=== PATIENT | male | born 1985 | race Caucasian/White ===

== ENCOUNTER 2016-11-02 17:08 | Emergency (ER) | payer BC, MEDICAID ==
[~2016-11-02] VITALS: Ht 167.6 cm; Wt 61.2 kg
[2016-11-02 17:08] VITALS: BP 128/81
[2016-11-02] MEDS ORDERED: LORAZEPAM 1 MG TABLET PO ONE ×2 (17:30→18:00)
[2016-11-02] MEDS ORDERED: ASPIRIN 325 MG TABLET PO ONE (17:30)
[2016-11-02] MEDS ORDERED: IBUPROFEN 600 MG TABLET PO ONE ×2 (17:46→18:00)
[2016-11-02] MEDS ORDERED: LORAZEPAM 1 MG TABLET ONE (17:46)
== END 2016-11-02 17:59 | disposition home or self-care (01) ==
LOC: ER 17:11
DX: F41.9 Anxiety disorder, unspecified (principal); R07.89 Other chest pain; R00.2 Palpitations
CPT/HCPCS: 93005; 99284; A4606; Z7610

== ENCOUNTER 2017-07-10 16:33 | Emergency (ER) | payer SELFPAY ==
[~2017-07-10] VITALS: Ht 170.2 cm; Wt 61.2 kg
[2017-07-10 16:58] VITALS: BP 112/77
[2017-07-10] MEDS ORDERED: ACETAMINOPHEN ES 500 MG TABLET ONE (17:18)
[2017-07-10] MEDS ORDERED: ACETAMINOPHEN 325 MG TABLET PO ONE (17:30)
--- NOTE | 2017-07-10 17:51 | NUR ---
PT IS REC'ING A SHORT ARM POSTERIOR ORTHO GLASS SPLINT. PT TO F/U WITH ORTHO.
== END 2017-07-10 17:55 | disposition home or self-care (01) ==
LOC: ER 16:40
DX: S62.336A Displaced fracture of neck of fifth metacarpal bone, right hand, initial encounter for closed fracture (principal); E11.9 Type 2 diabetes mellitus without complications; Z60.2 Problems related to living alone; F41.9 Anxiety disorder, unspecified; F10.10 Alcohol abuse, uncomplicated; V00.131A Fall from skateboard, initial encounter; Y93.51 Activity, roller skating (inline) and skateboarding; Y92.89 Other specified places as the place of occurrence of the external cause; Y99.8 Other external cause status
CPT/HCPCS: 73130-TC; A4606; Z7610

== ENCOUNTER 2017-11-08 13:50 | Emergency (ER) | payer SELFPAY ==
[~2017-11-08] VITALS: Ht 167.6 cm; Wt 63.5 kg
--- NOTE | 2017-11-08 13:55 | NUR ---
PATIENT TO ED DT LEFT SIDED CHEST PAIN, SHARP, NON RADIATING STARTED 1 HR AGO, FEELING WEAK. BODY'S SHAKING-- ADMITTED ALCOHOL LAST NIGTH. PATIENT IS AWAKE AND ALERT, NOT IN DISRESS. VSS
[2017-11-08] MEDS ORDERED: LORAZEPAM 1 MG TABLET ONE (14:10)
[2017-11-08] MEDS ORDERED: IBUPROFEN 600 MG TABLET PO ONE ×2 (14:11→14:30)
--- NOTE | 2017-11-08 14:15 | NUR ---
NEW IV STARTED ON LAC, 20G. BLOOD DRAWN AND SENT TO LAB.
[2017-11-08 14:19] LABS: BASOPHILS # (AUTO) 0.1 /CMM (0.0-0.2); BASOPHILS % (AUTO) 0.9 % (0.0-2.0); EOSINOPHILS % (AUTO) 2.8 % (0.0-6.0); HEMATOCRIT 46 % (39-51); HEMOGLOBIN 15.6 g/dL (13.5-17.5); LYMPHOCYTES # (AUTO) 1.6 /CMM (0.8-4.8); LYMPHOCYTES % (AUTO) 16.8 % (20.0-44.0); MEAN CORPUSCULAR HEMOGLOBIN 33 PG (26.0-33.0); MEAN CORPUSCULAR HGB CONC 34 g/dl (31.0-36.0); MEAN CORPUSCULAR VOLUME 96 fL (80-96); MONOCYTES # (AUTO) 0.8 /CMM (0.1-1.30); MONOCYTES % (AUTO) 8.6 % (2.0-12.0); NEUTROPHILS # (AUTO) 6.8 /CMM (1.8-8.9); NEUTROPHILS % (AUTO) 70.9 % (43.0-81.0); PLATELET COUNT (AUTO) 207 /CMM (150-450); RDW COEFFICIENT OF VARIATION 11.9 (11.5-15.0); RED BLOOD CELL COUNT(AUTO) 4.77 MIL/uL (4.5-6.0); WHITE BLOOD COUNT (AUTO) 9.6 K/uL (4.3-11.0)
[2017-11-08 14:27] LABS: CALCIUM, SERUM 8.7 mg/dL (8.5-10.1); CARBON DIOXIDE 31 mmol/L (21-32); CHLORIDE 100 mmol/L (98-107); CREATININE 0.9 mg/dL (0.6-1.3); GLUCOSE 99 mg/dL (74-106); SODIUM SERUM 135 mmol/L (136-145); UREA NITROGEN, BLOOD 9 mg/dL (7-18)
[2017-11-08 14:29] LABS: INR 0.94 (0.85-1.15)
[2017-11-08] MEDS ORDERED: LORAZEPAM 1 MG TABLET PO ONE (14:30)
[2017-11-08 14:33] LABS: ALANINE AMINOTRANSFERASE 41 U/L (12-78); ALBUMIN 3.9 g/dL (3.4-5.0); ALKALINE PHOSPHATASE 80 U/L (46-116); ASPARTATE AMINOTRANSFERASE 46 U/L (15-37); BILIRUBIN,DIRECT 0.2 mg/dL (0.0-0.2); BILIRUBIN,TOTAL 0.5 mg/dL (0.2-1.0); TOTAL PROTEIN, SERUM 8.2 g/dL (6.4-8.2)
[2017-11-08 14:35] LABS: TROPONIN I < 0.017 ng/mL (0.00-0.056)
[2017-11-08 15:46] VITALS: BP 120/66
--- NOTE | 2017-11-08 15:46 | NUR ---
Patient discharged to home in stable condition. Written and verbal after care instructions given. Patient verbalizes understanding of instruction.IV removed. Catheter intact and site benign. Pressure and 4x4 applied to site. No bleeding noted.
== END 2017-11-08 15:47 | disposition home or self-care (01) ==
LOC: ER 13:50
DX: R07.89 Other chest pain (principal); F41.9 Anxiety disorder, unspecified; E11.9 Type 2 diabetes mellitus without complications; F10.10 Alcohol abuse, uncomplicated; Z60.2 Problems related to living alone; Y90.9 Presence of alcohol in blood, level not specified
CPT/HCPCS: 36415; 71045-TC; 80048-TC; 80076-TC; 84484-TC; 85025-TC; 85730-TC; A4606; Z7610

== ENCOUNTER 2018-04-05 01:50 | Emergency (ER) | payer MEDICAID ==
[~2018-04-05] VITALS: Ht 167.6 cm; Wt 63.5 kg
--- NOTE | 2018-04-05 02:04 | NUR ---
PT BIBRA FROM HOME COMPLAINING OF UPPER ABDOMINAL PAIN X1 DAY. PT ALSO COMPLAINING OF NAUSEA. DENIES VOMITTING, DIARRHEA, SOB, CHEST PAIN, DYSURIA. PT RECENTLY DX WITH GALLSTONES LAST WEEK AND STATES "IBUPROFEN DOESN'T HELP THE PAIN ANYMORE". PT IS AAOX4. RESPIRATIONS EVEN AND UNLABORED. SKIN WARM AND INTACT. VITAL SIGNS STABLE. NO ACUTE DISTRESS NOTED AT THIS TIME. WAITING MD EVALUATION, WILL CONTINUE TO MONITOR
[2018-04-05] MEDS ORDERED: ONDANSETRON HCL/PF 4 MG/2 ML VIAL ONE (02:23)
[2018-04-05] MEDS ORDERED: MORPHINE SULFATE INJ 4 MG/ML DISP.SYRIN ONE (02:23)
[2018-04-05] MEDS ORDERED: ONDANSETRON 4 MG TAB.RAPDIS ONE (02:25)
[2018-04-05] MEDS ORDERED: ONDANSETRON 4 MG TAB.RAPDIS SL ONE (02:30)
[2018-04-05] MEDS ORDERED: MORPHINE SULFATE INJ 2 MG/ML DISP.SYRIN IM ONE (02:30)
--- NOTE | 2018-04-05 02:51 | NUR ---
dPatient discharged to home in stable condition. Written and verbal after care instructions given. Patient verbalizes understanding of instruction. Pt ambulatory with a steady gait. Pt instructed not to drive, left with mother
[2018-04-05 02:53] VITALS: BP 118/88
== END 2018-04-05 02:53 | disposition home or self-care (01) ==
LOC: ER 01:53
DX: K80.50 Calculus of bile duct without cholangitis or cholecystitis without obstruction (principal); F41.9 Anxiety disorder, unspecified
CPT/HCPCS: 96372; 99283; A4606; J2270; Q0162; Z7610; J2405

== ENCOUNTER 2019-08-12 13:55 | Emergency (ER) | payer MEDICAID ==
[~2019-08-12] VITALS: Ht 172.7 cm; Wt 70.8 kg
[2019-08-12 14:28] LABS: BASOPHILS % (AUTO) 0.4 % (0.0-2.0); EOSINOPHILS % (AUTO) 0.8 % (0.0-6.0); HEMATOCRIT 53 % (39-51); HEMOGLOBIN 18.2 g/dL (13.5-17.5); LYMPHOCYTES # (AUTO) 1.9 /CMM (0.8-4.8); MEAN CORPUSCULAR HGB CONC 34 g/dl (31.0-36.0); MEAN CORPUSCULAR VOLUME 96 fL (80-96); MONOCYTES # (AUTO) 0.9 /CMM (0.1-1.30); MONOCYTES % (AUTO) 8.4 % (2.0-12.0); NEUTROPHILS # (AUTO) 7.8 /CMM (1.8-8.9); NEUTROPHILS % (AUTO) 72.4 % (43.0-81.0); PLATELET COUNT (AUTO) 245 /CMM (150-450); RED BLOOD CELL COUNT(AUTO) 5.51 MIL/uL (4.5-6.0); WHITE BLOOD COUNT (AUTO) 10.8 K/uL (4.3-11.0)
--- NOTE | 2019-08-12 14:30 | NUR ---
patient came in to the er c/o L sided chest pain since this morning, worsening with movement and inspiration. ON room air, breathing evenly and unlabored. connected to the monitor and pulse ox. kept comfortable, will continue to monitor accordingly.
[2019-08-12 14:39] LABS: CALCIUM, SERUM 9.3 mg/dL (8.5-10.1); CARBON DIOXIDE 29 mmol/L (21-32); CHLORIDE 99 mmol/L (98-107); GLUCOSE 100 mg/dL (74-106); POTASSIUM 4.1 mmol/L (3.5-5.1); SODIUM SERUM 137 mmol/L (136-145); UREA NITROGEN, BLOOD 10 mg/dL (7-18)
[2019-08-12 15:21] VITALS: BP 134/89
--- NOTE | 2019-08-12 15:21 | NUR ---
Patient discharged to home in stable condition. Written and verbal after care instructions given. Patient verbalizes understanding of instruction. Pt ambulatory with a steady gait. IV removed. Catheter intact and site benign. Pressure and 4x4 applied to site. No bleeding noted.
[2019-08-12 16:53] LABS: EOSINOPHILS % (MANUAL) 2 % (0-4); LYMPHOCYTES % (MANUAL) 20 % (16-48); MONOCYTES % (MANUAL) 9 % (0-11.0); NEUTROPHILS % (MANUAL) 69 (42-76)
[2019-08-13] MEDS ORDERED: NITROGLYCERIN ICAR 1,000 MCG/10 ML VIAL ICAR ONE (11:59)
== END 2019-08-12 15:25 | disposition home or self-care (01) ==
LOC: ER 13:57
DX: F41.9 Anxiety disorder, unspecified (principal); R21 Rash and other nonspecific skin eruption
CPT/HCPCS: 36415; 71045-TC; 80048-TC; 84484-TC; 85025-TC

== ENCOUNTER 2019-09-23 22:07 | Inpatient (IN) | payer MEDICAID ==
[~2019-09-23] VITALS: Ht 167.6 cm; Wt 76.2 kg
--- NOTE | 2019-09-23 22:32 | NUR ---
BIBS FOR C/O ABD PAIN RADIATING TO THE LOWER BACK SINCE 12 PM. +N/V PMH: CHOLELITHIASIS pt to bed 9, palced on monitor, -sob, vss. pending er doctor emerita
[2019-09-23] MEDS ORDERED: ONDANSETRON HCL/PF 4 MG/2 ML VIAL ONE (22:49)
[2019-09-23] MEDS ORDERED: MORPHINE SULFATE INJ 4 MG/ML DISP.SYRIN ONE (22:50)
[2019-09-23 22:51] LABS: BASOPHILS % (AUTO) 0.2 % (0.0-2.0); EOSINOPHILS % (AUTO) 0.4 % (0.0-6.0); HEMATOCRIT 47 % (39-51); HEMOGLOBIN 16.1 g/dL (13.5-17.5); LYMPHOCYTES # (AUTO) 1.5 /CMM (0.8-4.8); LYMPHOCYTES % (AUTO) 11.5 % (20.0-44.0); MEAN CORPUSCULAR HGB CONC 34 g/dl (31.0-36.0); MEAN CORPUSCULAR VOLUME 97 fL (80-96); MONOCYTES # (AUTO) 1.2 /CMM (0.1-1.30); MONOCYTES % (AUTO) 8.8 % (2.0-12.0); NEUTROPHILS # (AUTO) 10.3 /CMM (1.8-8.9); NEUTROPHILS % (AUTO) 79.1 % (43.0-81.0); PLATELET COUNT (AUTO) 216 /CMM (150-450); RED BLOOD CELL COUNT(AUTO) 4.87 MIL/uL (4.5-6.0)
[2019-09-23 22:59] LABS: APPEARANCE,URINE Clear (CLEAR); BILIRUBIN,URINE SMALL (NEGATIVE); BLOOD, URINE Negative Ery/uL (NEGATIVE); COLOR,URINE Yellow (YELLOW); KETONES,URINE Negative (NEGATIVE); LEUKOCYTE ESTERASE ,URINE Negative (NEGATIVE); NITRITE, URINE Negative (NEGATIVE); PROTEIN,URINE 100 mg/dl (NEGATIVE); UGLUCOSE Negative (NEGATIVE); UROBILINOGEN,URINE 0.2 EU/dL (0.2)
[2019-09-23] MEDS ORDERED: IV NS 0.9% 1,000 ML BAG IV ONE (23:00)
[2019-09-23] MEDS ORDERED: ONDANSETRON HCL/PF 4 MG/2 ML VIAL IVP ONE (23:00)
[2019-09-23] MEDS ORDERED: MORPHINE SULFATE INJ 2 MG/ML DISP.SYRIN IV ONE (23:00)
[2019-09-23 23:01] LABS: CALCIUM, SERUM 9.1 mg/dL (8.5-10.1); POTASSIUM 3.8 mmol/L (3.5-5.1)
[2019-09-23 23:08] LABS: ALBUMIN 3.6 g/dL (3.4-5.0); BILIRUBIN,DIRECT 0.2 mg/dL (0.0-0.2); BILIRUBIN,TOTAL 0.7 mg/dL (0.2-1.0); TOTAL PROTEIN, SERUM 7.9 g/dL (6.4-8.2)
[2019-09-23 23:17] LABS: BACTERIA,URINE Few /HPF (None Seen); SQUAMOUS EPITHELIAL CELL,UR Rare /HPF (None Seen); WBC,URINE 0-2 /HPF (0-3)
[2019-09-23] MEDS ORDERED: HYDROMORPHONE INJ 0.5 MG/0.5 ML SYRINGE IV ONE (23:30)
[2019-09-23] MEDS ORDERED: HYDROMORPHONE 1 MG/1 ML DISP.SYRIN ONE (23:43)
[2019-09-23] MEDS ORDERED: diphenhydrAMINE HCL 50 MG/ML VIAL ONE (23:46)
--- NOTE | 2019-09-23 23:53 | NUR ---
M/S [id number]
[2019-09-24] MEDS ORDERED: diphenhydrAMINE HCL 50 MG/ML VIAL IV ONE
--- NOTE | 2019-09-24 | NUR ---
report given to ronald flanagan for tasha pt will be transported to 3rd floor
--- NOTE | 2019-09-24 00:02 | NUR ---
pt repeatedly asking for food or drink, per Dr. Ga, pt is NPO
--- NOTE | 2019-09-24 00:42 | NUR ---
DR. ABEL PAGED PER ER ORDER.
--- NOTE | 2019-09-24 00:51 | NUR ---
EVER MASSEY TALKING TO DR. ABEL REGARDING PT ADMISSION.
[2019-09-24 01:00] VITALS: BP 133/87
[2019-09-24] MEDS ORDERED: MAGNESIUM HYDROXIDE 30 ML UDC PO PRN (01:00)
[2019-09-24] MEDS ORDERED: MAG HYDROX/AL HYDROX/SIMETH 30 ML UDC PO PRN (01:00)
[2019-09-24] MEDS ORDERED: ACETAMINOPHEN 325 MG TABLET PO PRN (01:00)
[2019-09-24] MEDS ORDERED: ZOLPIDEM TARTRATE 5 MG TABLET PO PRN (01:00)
[2019-09-24] MEDS ORDERED: Z GUARD REMEDY 2 OZ OINT TP PRN (01:00)
[2019-09-24] MEDS ORDERED: HYDROCODONE/APAP 5/325MG 1 EACH TABLET PO PRN (01:00)
--- NOTE | 2019-09-24 01:02 | NUR ---
transported to 3rd [facility]
[2019-09-24] MEDS: IV NS 0.9% 1,000 ML IV SCH ×3 (01:26→21:08)
[2019-09-24 01:30] VITALS: BP 133/87
--- NOTE | 2019-09-24 01:45 | NUR ---
MS RN ADMITTING NOTES PATIENT VIA GURNEY ACCOMPANIED BY ER STAFF. PATIENT A/O X 4. STABLE ON RA WITH BREATHING EVEN AND UNLABORED, NO SOB NOTED. NO SIGNS OF ACUTE DISTRESS. NO COMPLAINTS OF PAIN OR DISCOMFORT. VITALS TAKEN BP 133/87 HR 90 RESP 18 T 98.1 OR 96%. PATIENT ORIENTED TO ROOM AND STAFF. SKIN ASSESSMENT DONE. IV LOCATED ON AC #18. BELONGINGS ACCOUNTED FOR. SAFETY PRECAUTIONS IN PLACE WITH BED IN LOWEST POSITION, CALL LIGHT WITHIN REACH, BREAKS ON, SIDE RAILS UP. PATIENT REMAINING NPO THROUGHOUT THE NIGHT. WILL CONTINUE TO MONITOR.
[2019-09-24] MEDS: MORPHINE SULFATE INJ 2 MG/ML DISP.SYRIN IV PRN ×5 (02:55→21:08)
--- NOTE | 2019-09-24 06:47 | NUR ---
MS RN CLOSING NOTES PATIENT IN BED RESTING, A/O X4. STABLE ON RA WITH BREATHING EVEN AND UNLABORED, NO SOB NOTED. NO SIGN ACUTE DISTRESS. NO COMPLAINTS OF PAIN OR DISCOMFORT. IV LOCATED ON R HAND #18 RUNNING NS @ 100 ML/HR. SAFETY PRECAUTIONS IN PLACE WITH BED IN LOWEST POSITION, CALL LIGHT WITHIN REACH, BREAKS ON SIDE, RAILS UP. WILL ENDORSE TO ONCOMING SHIFT ABOUT ROSA.
[2019-09-24 07:14] LABS: BASOPHILS % (AUTO) 0.5 % (0.0-2.0); EOSINOPHILS % (AUTO) 3.1 % (0.0-6.0); HEMATOCRIT 47 % (39-51); LYMPHOCYTES # (AUTO) 2.1 /CMM (0.8-4.8); LYMPHOCYTES % (AUTO) 24.1 % (20.0-44.0); MEAN CORPUSCULAR HGB CONC 34 g/dl (31.0-36.0); MEAN CORPUSCULAR VOLUME 97 fL (80-96); MONOCYTES # (AUTO) 0.8 /CMM (0.1-1.30); MONOCYTES % (AUTO) 8.7 % (2.0-12.0); NEUTROPHILS # (AUTO) 5.7 /CMM (1.8-8.9); NEUTROPHILS % (AUTO) 63.6 % (43.0-81.0); PLATELET COUNT (AUTO) 189 /CMM (150-450); RED BLOOD CELL COUNT(AUTO) 4.87 MIL/uL (4.5-6.0); WHITE BLOOD COUNT (AUTO) 8.9 K/uL (4.3-11.0)
[2019-09-24 07:15] LABS: CALCIUM, SERUM 8.3 mg/dL (8.5-10.1); PHOSPHORUS 3.8 mg/dL (2.5-4.9); POTASSIUM 3.9 mmol/L (3.5-5.1)
--- NOTE | 2019-09-24 07:25 | NUR ---
MS/RN Opening note Patient received from overnight cashier. A/O X4, vital signs stable, complaining of abdominal pain 12/01, morphine last administered at 0255, will give now. Remains NPO, fluids infusing at 100ml/hr, no signs of infiltration seen. Al questions and concerns addressed/answered.l Will continue to monitor and ensure safety.
[2019-09-24] MEDS: ONDANSETRON HCL/PF 4 MG/2 ML VIAL IVP PRN ×2 (07:27→17:06)
[2019-09-24 08:00] VITALS: BP 127/74
--- NOTE | 2019-09-24 08:54 | NUR ---
MS/RN Pain reassessment Patient stating that pain scale is improved, now 4/10.
--- NOTE | 2019-09-24 12:20 | NUR ---
MS/RN S/B Dr Cotter Seen by MD - continue with NPO status, IV fluids and pain medications as needed. Morning labs ordered.
[2019-09-24 16:00] VITALS: BP 136/81
--- NOTE | 2019-09-24 18:12 | NUR ---
MS/RN End note Patient remains in stable condition. Last morphine administered at 1710 with zofran with goo effect. IV fluids at 100ml, no signs of infiltration seen. Tolerating clear liquid diet. Will endorse to store receiving clerk.
--- NOTE | 2019-09-24 19:15 | NUR ---
MS RN NOTES RECEIVED PT IN BED AWAKE AND ABLE TO MAKE NEEDS KNOWN. PT A/OX 3. RESPIRATIONS EVEN AND UNLABORED WITH NO S/S OF ACUTE DISTRESS OR SOB NOTED. PT NOTED WITH RAC #18G INFUSING NS @100CC/HR. NO COMPLAINTS OF PAIN AT THIS TIME. SAFETY MEASURES IN PLACE WITH BED IN LOWEST LOCKED POSITION WITH SIDE RAILS UP X2. CALL LIGHT WITHIN REACH. WILL CONTINUE TO MONITOR.
[2019-09-24 20:00] VITALS: BP 140/90
[2019-09-25] MEDS: MORPHINE SULFATE INJ 2 MG/ML DISP.SYRIN IV PRN (05:36)
--- NOTE | 2019-09-25 07:09 | NUR ---
MS RN NOTES PT IN BED AWAKE AND ABLE TO MAKE NEEDS KNOWN. PT A/OX 3. RESPIRATIONS EVEN AND UNLABORED WITH NO S/S OF ACUTE DISTRESS OR SOB NOTED THROUGHOUT SHIFT. PT NOTED WITH RAC #18G INFUSING NS @100CC/HR. NO COMPLAINTS OF PAIN AT THIS TIME. SAFETY MEASURES IN PLACE WITH BED IN LOWEST LOCKED POSITION WITH SIDE RAILS UP X2. CALL LIGHT WITHIN REACH. WILL ENDORSE TO ONCOMING NURSE FOR ROSA.
--- NOTE | 2019-09-25 07:30 | NUR ---
MS/RN Patient resting in bed, A&O x 3. No SOB noted, breathing even and non-labored. No cardiac distress noted. Patient reports no pain/discomfort at this time. IV access noted on the right AC, 18 gauge infusing NS at 100ml/hr. Sensations from all peripheral extremities intact. Fall precautions maintained. Will continue with current medical management.
[2019-09-25] MEDS ORDERED: IV NS 0.9% 1,000 ML IV PRN (07:55)
[2019-09-25 08:49] VITALS: BP 123/70
--- NOTE | 2019-09-25 09:08 | NUR ---
RN NOTE Per MD, ok to advance diet to see how patient can tolerate.
--- NOTE | 2019-09-25 12:00 | NUR ---
RAILROAD CAR LETTERER NOTE Patient is medically stable for discharge. A/O x4, showing no signs of acute distress or SOB, stable on RA. Skin assessed and skin remains intact. IV line removed, ID band removed. DC instructions provided and patient verbalized understanding. All patient needs met, all due medications given. Patient is ambulatory with BRP and independent with care during hospital stay. Patient was able to tolerate regular diet prior to discharge. Patient left hospital with via private care en route to home.
== END 2019-09-25 11:00 | disposition home or self-care (01) | DRG 438 ==
LOC: ER 22:09 → MED 09-24 00:03
PROVIDERS: ADMIT Internal Medicine; ATTEND Internal Medicine
DX: K85.20 Alcohol induced acute pancreatitis without necrosis or infection (principal); K65.9 Peritonitis, unspecified; F41.9 Anxiety disorder, unspecified; F10.10 Alcohol abuse, uncomplicated; Y90.9 Presence of alcohol in blood, level not specified; K70.10 Alcoholic hepatitis without ascites
CPT/HCPCS: 36415; 80048-TC; 80061-TC; 80076-TC; 81000-TC; 83690-TC; 83735-TC; 84100-TC; 85025-TC; 87081-TC; G0378; J1170; J1200; J2270; J2405; J7030

== ENCOUNTER 2019-11-25 14:54 | Emergency (ER) | payer MEDICAID ==
[~2019-11-25] VITALS: Ht 170.2 cm; Wt 72.6 kg
--- NOTE | 2019-11-25 14:56 | NUR ---
Marvin higuera in [facility] - 11/25/19 at 1556 by NAOMY [id number] BED ASSIGNED
--- NOTE | 2019-11-25 15:10 | NUR ---
Patient came in to the er c/o generalized body rash after grooming the cat. On room air, breathing evenly and unlabored. connected to the monitor and pulse ox. kept comfortable, will continue to monitor accordingly.
[2019-11-25] MEDS ORDERED: diphenhydrAMINE HCL 50 MG/ML VIAL ONE (15:44)
[2019-11-25] MEDS ORDERED: FAMOTIDINE/PF INJ 20 MG/2 ML VIAL IV ONE ×2 (15:44→16:00)
[2019-11-25] MEDS ORDERED: methylPREDNISolone SOD SUCC 125 MG/2ML VIAL ONE (15:44)
[2019-11-25] MEDS ORDERED: IV NS 0.9% 1,000 ML IV ONE (16:00)
[2019-11-25] MEDS ORDERED: diphenhydrAMINE HCL 50 MG/ML VIAL IV ONE (16:00)
[2019-11-25] MEDS ORDERED: methylPREDNISolone SOD SUCC 125 MG/2ML VIAL IV ONE (16:00)
[2019-11-25 17:38] VITALS: BP 120/87
== END 2019-11-25 17:39 | disposition home or self-care (01) ==
LOC: ER 14:59
DX: J30.81 Allergic rhinitis due to animal (cat) (dog) hair and dander (principal); F41.9 Anxiety disorder, unspecified
CPT/HCPCS: 96361; 96374; 96375; 99284; J1200; J2930; J3490; J7030

== ENCOUNTER 2019-12-17 10:41 | Inpatient (IN) | payer MEDICAID ==
[~2019-12-17] VITALS: Ht 170.2 cm; Wt 77.6 kg
[2019-12-17] MEDS ORDERED: ONDANSETRON HCL/PF 4 MG/2 ML VIAL IVP ONE (11:00)
[2019-12-17] MEDS ORDERED: FAMOTIDINE/PF INJ 20 MG/2 ML VIAL IV ONE ×2 (11:00→11:35)
[2019-12-17] MEDS ORDERED: MORPHINE SULFATE INJ 2 MG/ML DISP.SYRIN IV ONE (11:00)
[2019-12-17] MEDS ORDERED: IV NS 0.9% 1,000 ML BAG IV ONE (11:00)
--- NOTE | 2019-12-17 11:00 | NUR ---
c/o abd pain since this morning 10/10 pain scale. Patient a/ox4, breathing even and unlabored, no sob noted, c/o nausea and vomiting. Needs attended, kept comfortable.
[2019-12-17 11:16] LABS: BASOPHILS % (AUTO) 0.5 % (0.0-2.0); EOSINOPHILS % (AUTO) 0.7 % (0.0-6.0); HEMATOCRIT 49 % (39-51); HEMOGLOBIN 16.6 g/dL (13.5-17.5); LYMPHOCYTES # (AUTO) 2.1 /CMM (0.8-4.8); LYMPHOCYTES % (AUTO) 21.3 % (20.0-44.0); MEAN CORPUSCULAR HGB CONC 34 g/dl (31.0-36.0); MEAN CORPUSCULAR VOLUME 99 fL (80-96); MONOCYTES # (AUTO) 0.8 /CMM (0.1-1.30); MONOCYTES % (AUTO) 7.9 % (2.0-12.0); NEUTROPHILS % (AUTO) 69.6 % (43.0-81.0); PLATELET COUNT (AUTO) 272 /CMM (150-450); RED BLOOD CELL COUNT(AUTO) 4.96 MIL/uL (4.5-6.0)
[2019-12-17 11:22] LABS: CALCIUM, SERUM 9.3 mg/dL (8.5-10.1); CREATININE 0.9 mg/dL (0.6-1.3); POTASSIUM 3.6 mmol/L (3.5-5.1)
[2019-12-17 11:28] LABS: ALBUMIN 3.9 g/dL (3.4-5.0); BILIRUBIN,DIRECT 0.4 mg/dL (0.0-0.2); BILIRUBIN,TOTAL 1.1 mg/dL (0.2-1.0); TOTAL PROTEIN, SERUM 8.3 g/dL (6.4-8.2)
[2019-12-17] MEDS ORDERED: MORPHINE SULFATE INJ 4 MG/ML DISP.SYRIN ONE (11:34)
[2019-12-17] MEDS ORDERED: ONDANSETRON HCL/PF 4 MG/2 ML VIAL ONE (11:34)
[2019-12-17] MEDS ORDERED: HYDROMORPHONE 1 MG/1 ML DISP.SYRIN ONE ×2 (12:03→13:42)
--- NOTE | 2019-12-17 12:29 | NUR ---
CALLED [facility]. CHIEF RADIATION THERAPIST WAS PAGED
[2019-12-17] MEDS ORDERED: HYDROMORPHONE 1 MG/1 ML DISP.SYRIN IV ONE ×2 (12:30→14:00)
--- NOTE | 2019-12-17 12:36 | NUR ---
CALLED HOUSE SUP FOR MS BED
--- NOTE | 2019-12-17 13:30 | NUR ---
Received report from LAB: [id number]
--- NOTE | 2019-12-17 13:44 | NUR ---
SEEN AND EVALUATED BY JOSIAS VIRAMONTES NP. RECEIVED ORDER TO GIVE DILAUDID 1MG X1.
--- NOTE | 2019-12-17 13:51 | NUR ---
REPORT GIVEN TO CURLY ARTHUR.
[2019-12-17] MEDS ORDERED: ONDANSETRON HCL/PF 4 MG/2 ML VIAL IVP PRN (14:00)
[2019-12-17] MEDS ORDERED: ACETAMINOPHEN 325 MG TABLET PO PRN (14:00)
[2019-12-17] MEDS ORDERED: HYDROMORPHONE 1 MG/1 ML DISP.SYRIN IV PRN (14:00)
[2019-12-17] MEDS ORDERED: IV NS 0.9% 1,000 ML IV ONE (14:00)
[2019-12-17] MEDS ORDERED: Z GUARD REMEDY 2 OZ OINT TP PRN (14:00)
[2019-12-17] MEDS ORDERED: MAG HYDROX/AL HYDROX/SIMETH 30 ML UDC PO PRN (14:00)
[2019-12-17] MEDS ORDERED: MAGNESIUM HYDROXIDE 30 ML UDC PO PRN (14:00)
--- NOTE | 2019-12-17 14:21 | NUR ---
PATIENT TRANSFERRED TO MED SURG FLOOR. A/OX4, IN NO DISTRESS NOTED.
--- NOTE | 2019-12-17 14:33 | NUR ---
RN MS NOTES RECEIVED PT FROM E.R. STAFF VIA VERA, PT IS AWAKE, ALERT AND ORIENTED, WITH COMPLAINT OF ABDOMINAL PAIN, STATED THAT MORPHINE WORKS BEST FOR HIS PAIN, DR. VIRAMONTES INFORMED, ORDERS GIVEN AND CARRIED OUT, CALL LIGHT WITHIN REACH, ROOM SET UP ORIENTATION PROVIDED TO PT, VERBALIZED UNDERSTANDING, NEEDS ATTENDED.
[2019-12-17] MEDS ORDERED: MORPHINE SULFATE INJ 2 MG/ML DISP.SYRIN IV PRN (15:00)
[2019-12-17 16:00] VITALS: BP 144/80
--- NOTE | 2019-12-17 16:39 | NUR ---
RN MS NOTES PT STILL COMPLAINING OF ABDOMINAL PAIN, DR. VIRAMONTES INFORMED, ORDERED TO INCREASE MORPHINE TO 2 MG, NOTED AND CARRIED OUT.
[2019-12-17] MEDS: MORPHINE SULFATE INJ 2 MG/ML DISP.SYRIN IV PRN ×2 (17:21→21:35)
--- NOTE | 2019-12-17 18:14 | NUR ---
RN MS NOTES PT IN BED, RESTING, PAIN MEDS GIVEN FOR PAIN MANAGEMENT, ABLE TO AMBULATE TO THE BATHROOM WITH STEADY GAIT, KEPT NPO, IV FLUIDS INFUSING WELL, CALL LIGHT WITHIN REACH, ALL NEEDS ATTENDED.
[2019-12-17] MEDS ORDERED: ANESTHESIA TRAY IN PYXIS 1 EA TRAY MC ONE (18:34)
[2019-12-17] MEDS ORDERED: BUPIVACAINE MPF 0.5% W/EPI INJ 30 ML VIAL ONE (18:34)
[2019-12-17] MEDS ORDERED: LIDOCAINE 1% INJ 50 ML MDV IJ ONE (18:34)
--- NOTE | 2019-12-17 19:45 | NUR ---
MS RN OPENING NOTES RECEIVED PATIENT FROM MORNING SHIFT ALERT AND ORIENTED X 4. VERBALLY RESPONSIVE AND ABLE TO FOLLOW DIRECTIONS. BREATHING REGULAR AND UNLABORED ON ROOM AIR. RIGHT AC G18 IV LINE INTACT AND PATENT, INFUSING WELL WITH NO BLEEDING OR S/S OF INFILTRATION NOTED. COMPLAINED OF 4/10 ABDOMINAL PAIN, NON-PHARMACOLOGICAL INTERVENTIONS PROVIDED. ADVISED TO MAINTAIN NOTHING BY MOUTH BUT OK FOR ICE CHIPS. BED LOW AND LOCKED ON SEMI FOWLERS POSITION. CALL LIGHT IN REACH. WILL CONTINUE TO MONITOR.
[2019-12-17 20:00] VITALS: BP 142/81
[2019-12-17 20:02] VITALS: BP 142/81
[2019-12-17] MEDS: HYDROCODONE/APAP 5/325MG TABLET PO PRN (20:23)
--- NOTE | 2019-12-17 20:30 | NUR ---
MS RN NOTES COMPLAINED OF 8/10 ABDOMINAL PAIN, MORPHINE 2MG NOT DUE YET. NOTIFIED WITH ORDERS TO GIVE NORCO 5/325 EVEN PATIENT IS ON NPO, NOTED AND CARRIED OUT. NON-PHARMACOLOGICAL INTERVENTIONS PROVIDED. WILL CONTINUE TO MONITOR.
--- NOTE | 2019-12-17 21:35 | NUR ---
MS RN NOTES STILL WITH 8/10 ABDOMINAL PAIN, MORPHINE 2MG GIVEN VIA IVP. VITAL SIGNS WNL. WILL CONTINUE TO MONITOR.
[2019-12-17] MEDS ORDERED: LORAZEPAM INJ 2 MG/ML VIAL IV PRN (23:00)
[2019-12-18] MEDS: MORPHINE SULFATE INJ 2 MG/ML DISP.SYRIN IV PRN ×4 (01:32→22:12)
[2019-12-18] MEDS: HYDROCODONE/APAP 5/325MG TABLET PO PRN ×3 (04:33→20:44)
[2019-12-18] MEDS: IV NS 0.9% 1,000 ML IV PRN ×2 (04:41→18:23)
[2019-12-18 06:37] LABS: BASOPHILS % (AUTO) 0.1 % (0.0-2.0); EOSINOPHILS % (AUTO) 0.1 % (0.0-6.0); HEMATOCRIT 55 % (39-51); HEMOGLOBIN 18.4 g/dL (13.5-17.5); LYMPHOCYTES # (AUTO) 1.4 /CMM (0.8-4.8); LYMPHOCYTES % (AUTO) 8.2 % (20.0-44.0); MEAN CORPUSCULAR HGB CONC 33 g/dl (31.0-36.0); MEAN CORPUSCULAR VOLUME 101 fL (80-96); MONOCYTES # (AUTO) 0.7 /CMM (0.1-1.30); MONOCYTES % (AUTO) 4.3 % (2.0-12.0); NEUTROPHILS # (AUTO) 14.5 /CMM (1.8-8.9); NEUTROPHILS % (AUTO) 87.3 % (43.0-81.0); PLATELET COUNT (AUTO) 198 /CMM (150-450); RED BLOOD CELL COUNT(AUTO) 5.48 MIL/uL (4.5-6.0); WHITE BLOOD COUNT (AUTO) 16.6 K/uL (4.3-11.0)
[2019-12-18 06:49] LABS: ALBUMIN 3.3 g/dL (3.4-5.0); BILIRUBIN,TOTAL 1.8 mg/dL (0.2-1.0); CALCIUM, SERUM 8.8 mg/dL (8.5-10.1); CREATININE 0.9 mg/dL (0.6-1.3); MAGNESIUM 2.2 mg/dL (1.8-2.4); PHOSPHORUS 3.6 mg/dL (2.5-4.9); POTASSIUM 5.4 mmol/L (3.5-5.1); TOTAL PROTEIN, SERUM 7.4 g/dL (6.4-8.2)
--- NOTE | 2019-12-18 07:00 | NUR ---
MS RN CLOSING NOTES PATIENT IN BED ALERT AND ORIENTED X 4. AFEBRILE WITH NO S/S OF DISTRESS OBSERVED. RIGHT AC G18 IV LINE PATENT AND INFUSING WELL. NO COMPLAINTS OF PAIN/DISCOMFORT REPORTED AT THIS TIME. MAINTAINED NOTHING BY MOUTH BUT OK FOR ICE CHIPS. BED LOW AND LOCKED ON SEMI FOWLERS POSITION. CALL LIGHT IN REACH. WILL ENDORSE TO MORNING SHIFT FOR ROSA.
--- NOTE | 2019-12-18 07:41 | NUR ---
MS/RN OPENING NOTES RECEIVED PATIENT ON BED ALERT AND ORIENTED X 4. AFEBRILE WITH NO S/S OF DISTRESS NOTED. RIGHT AC G18 IV LINE PATENT AND INFUSING WELL. PATIENT COMPLAINTS OF PAIN RATED 9/10 AT THIS TIME. PATIENT IS ON NOTHING BY MOUTH BUT OK FOR ICE CHIPS. BED LOW AND LOCKED ON SEMI FOWLERS POSITION. CALL LIGHT IN REACH. WILL CONTINUE TO MONITOR.
[2019-12-18 08:00] VITALS: BP 142/88
[2019-12-18] MEDS: FOLIC ACID 1 MG TABLET PO SCH (09:00)
[2019-12-18] MEDS: Thiamine 100 MG in IV D5W 50 ML IV SCH (09:24)
--- NOTE | 2019-12-18 11:16 | NUR ---
MS/RN NOTES JOSIAS HOME HEALTH CLINICIAN ORDER NPO EXCEPT MEDS NOTED AND CARRIED OUT.
[2019-12-18] MEDS: CIPROFLOXACIN IV RTU 400 MG in PREMIX 1 EA IV SCH ×2 (12:23→23:17)
[2019-12-18] MEDS ORDERED: KETOROLAC TROMETHAMINE INJ 30 MG/ML VIAL IV ONE (13:00)
[2019-12-18] MEDS: METRONIDAZOLE 500MG/ NS 100ML 500 MG in PREMIX 1 EA IV SCH ×2 (13:50→20:11)
[2019-12-18 16:00] VITALS: BP 128/87
--- NOTE | 2019-12-18 19:00 | NUR ---
MS/RN CLOSING NOTES PATIENT IS ON BED ALERT AND ORIENTED X4. PATIENT DENIES PAIN AT THIS TIME. PATIENT IS ON ROOM AIR SATURATION OF 98%. RESPIRATION REGULAR AND UNLABORED. IV ACCESS AT RIGHT AC # 18 G WITH IV FLUID OF NS1L AT 90 ML/HR ON AND INFUSING WELL. SEEN AND EXAMINED BY MD WITH ORDERS MADE AND CARRIED OUT. ALL DUE MEDICATION WAS GIVEN. SAFETY PRECAUTION IN PLACED. CHECKED PATIENT EVERY 2 HOURS. BED IN LOWEST POSITION AND LOCKED. SIDE RAILS UP X2. CALL LIGHT WITH IN REACH. WILL ENDORSED TO VALVE SEATER OPERATOR FOR. ROSA.
--- NOTE | 2019-12-18 19:45 | NUR ---
MS RN OPENING NOTES RECEIVED PATIENT FROM MORNING SHIFT ALERT AND ORIENTED X 4. VERBALLY RESPONSIVE AND ABLE TO FOLLOW DIRECTIONS. BREATHING REGULAR AND UNLABORED ON ROOM AIR. RIGHT AC G18 IV LINE INTACT AND PATENT, INFUSING WELL WITH NO BLEEDING OR S/S OF INFILTRATION NOTED. COMPLAINED OF 2/10 ABDOMINAL PAIN, NON-PHARMACOLOGICAL INTERVENTIONS PROVIDED. ADVISED TO MAINTAIN NOTHING BY MOUTH BUT OK FOR ICE CHIPS. BED LOW AND LOCKED ON SEMI FOWLERS POSITION. CALL LIGHT IN REACH. WILL CONTINUE TO MONITOR.
[2019-12-18 20:00] VITALS: BP 123/84
[2019-12-18] MEDS: PANTOPRAZOLE 40 MG VIAL IV SCH (20:43)
--- NOTE | 2019-12-18 22:15 | NUR ---
MS RN NOTES COMPLAINED OF 8/10 ABDOMINAL PAIN, MORPHINE 2MG GIVEN VIA IVP. VITAL SIGNS WNL. NON-PHARMACOLOGICAL INTERVENTIONS PROVIDED. WILL CONTINUE TO MONITOR.
[2019-12-19] MEDS: MORPHINE SULFATE INJ 2 MG/ML DISP.SYRIN IV PRN ×5 (02:36→21:26)
[2019-12-19] MEDS: METRONIDAZOLE 500MG/ NS 100ML 500 MG in PREMIX 1 EA IV SCH ×3 (05:09→21:22)
[2019-12-19] MEDS: IV NS 0.9% 1,000 ML IV PRN ×2 (06:51→21:25)
[2019-12-19 07:12] LABS: BASOPHILS % (AUTO) 0.1 % (0.0-2.0); EOSINOPHILS % (AUTO) 0.4 % (0.0-6.0); HEMATOCRIT 49 % (39-51); HEMOGLOBIN 16.3 g/dL (13.5-17.5); LYMPHOCYTES # (AUTO) 1.6 /CMM (0.8-4.8); MEAN CORPUSCULAR HGB CONC 33 g/dl (31.0-36.0); MEAN CORPUSCULAR VOLUME 101 fL (80-96); MONOCYTES # (AUTO) 1.2 /CMM (0.1-1.30); MONOCYTES % (AUTO) 6.9 % (2.0-12.0); NEUTROPHILS # (AUTO) 14.9 /CMM (1.8-8.9); NEUTROPHILS % (AUTO) 83.6 % (43.0-81.0); PLATELET COUNT (AUTO) 154 /CMM (150-450); RED BLOOD CELL COUNT(AUTO) 4.86 MIL/uL (4.5-6.0); WHITE BLOOD COUNT (AUTO) 17.8 K/uL (4.3-11.0)
[2019-12-19] MEDS: PANTOPRAZOLE 40 MG VIAL IV SCH (07:50)
[2019-12-19] MEDS: FOLIC ACID 1 MG TABLET PO SCH (07:50)
[2019-12-19] MEDS: Thiamine 100 MG in IV D5W 50 ML IV SCH (07:51)
--- NOTE | 2019-12-19 08:00 | NUR ---
CISCO ENGINEER RECEIVED PT IN BED AOX4 STABLE CONDITION IV ACCESS PATENT PT AOX4 SAFETY MEASURES TAKEN WILL CON TO MONITOR. COMP OF PAIN WILL ADDRESS PAIN MANAGEMENT AND CONT TO MONITOR.
[2019-12-19] MEDS: HYDROCODONE/APAP 5/325MG TABLET PO PRN ×4 (10:05→23:26)
[2019-12-19] MEDS: CIPROFLOXACIN IV RTU 400 MG in PREMIX 1 EA IV SCH ×2 (12:44→23:26)
--- NOTE | 2019-12-19 13:08 | NUR ---
MS RN NOTES RECEIVED REPORT FROM JERSON MARES FOR CONTINUATION OF CARE. PATIENT RESTING COMFORTABLY IN BED. DENIES ANY C/O PAIN NOR DISCOMFORT AT THIS TIME. CALL LIGHT WITHIN REACH.
--- NOTE | 2019-12-19 13:08 | NUR ---
MS ARTHUR NOTES REPORT GIVEN TO JERSON ADLER FOR CONTINUATION OF CARE. NO SOB. DENIES ANY C/O PAIN NOR DISCOMFORT AT THIS TIME. ARIANA FLUIDS WELL. ON REGULAR DIET, PER PATIENT IT TAKES AWHILE FOR THE FOOD TO GO DOWN AND IT'S SLIGHTLY PAINFUL. BUT WITH LIQUIDS, HE HAS NO PROBLEM. WILL CONTINUE TO MONITOR. Addendum: 12/19/19 at 1644 by CHANG TAPIA RN PATIENT TRANSFERRED TO [facility] AT 1614
--- NOTE | 2019-12-19 13:14 | NUR ---
agricultural education teacher pt in bed no distress noted during shift report given to mike flanagan for con of care all pt needs meet
[2019-12-19] MEDS ORDERED: MAGNESIUM HYDROXIDE 30 ML UDC PO PRN (14:00)
[2019-12-19] MEDS: DOCUSATE SODIUM 100 MG CAPSULE PO SCH (14:45)
[2019-12-19 16:00] VITALS: BP 134/81
--- NOTE | 2019-12-19 16:14 | NUR ---
MS RN NOTES REPORT GIVEN TO JERSON ADLER FOR CONTINUATION OF CARE. NO SOB. DENIES ANY C/O PAIN NOR DISCOMFORT AT THIS TIME. ARIANA FLUIDS WELL. ON REGULAR DIET, PER PATIENT IT TAKES AWHILE FOR THE FOOD TO GO DOWN AND IT'S SLIGHTLY PAINFUL. BUT WITH LIQUIDS, HE HAS NO PROBLEM. WILL CONTINUE TO MONITOR.
--- NOTE | 2019-12-19 16:30 | NUR ---
Received patient from JERSON Sexton. Transferred from room 320 to 208. Patient in stable condition. not in any form of distress. No SOB. Complaints of abdominal pain 12/01, will administer pain meds as ordered. Situated in the room. iv access intact and patent. Safety precautions in place. Bed in low/locked position, siderails upx2, call light in reach. will cont to monitor accordingly.
--- NOTE | 2019-12-19 18:58 | NUR ---
RN CLOSING NOTES PATIENT IN STABLE CONDITION. ALL NEEDS ATTENDED AND PROVIDED. ALL DUE MEDS GIVEN ORDERED. KEPT PATIENT SAFE AND COMFORTABLE. BED IN LOW/LOCKED POSITION. SIDERAILS UPX2,CALL LIGHT IN REACH. BED ALARM ON. WILL ENDORSE ACCORDINGLY.
--- NOTE | 2019-12-19 19:31 | NUR ---
MS RN PT A/O X 3, ASLEEP AND EASILY AWAKEN, RESTING. STABLE AND NOT IN DISTRESS, SAFETY MEASURES IN PLACE. WILL CONT TO MONITOR.
[2019-12-19 20:00] VITALS: BP 113/65
[2019-12-20] MEDS: MORPHINE SULFATE INJ 2 MG/ML DISP.SYRIN IV PRN ×6 (01:31→22:23)
[2019-12-20] MEDS: HYDROCODONE/APAP 5/325MG TABLET PO PRN ×4 (03:29→20:00)
[2019-12-20] MEDS: METRONIDAZOLE 500MG/ NS 100ML 500 MG in PREMIX 1 EA IV SCH ×3 (05:04→20:46)
--- NOTE | 2019-12-20 05:58 | NUR ---
MS RN ASLEEP AND EASILY AWAKEN, PATIENT MONITORED ACCORDINGLY MONITORED FOR PAIN WITH PRN PAIN MEDICATION WITH RELIEF, NON PHARMACOLOGICAL IMPLEMENTED, ALL NEEDS ATTENDED AND ANTICIPATED, KEPT CLEAN, COMFORTABLE. SAFETY MEASURES AT ALL TIMES.
[2019-12-20 06:40] LABS: BASOPHILS % (AUTO) 0.3 % (0.0-2.0); EOSINOPHILS % (AUTO) 1.1 % (0.0-6.0); HEMATOCRIT 44 % (39-51); HEMOGLOBIN 14.5 g/dL (13.5-17.5); LYMPHOCYTES # (AUTO) 1.3 /CMM (0.8-4.8); LYMPHOCYTES % (AUTO) 8.5 % (20.0-44.0); MEAN CORPUSCULAR HGB CONC 33 g/dl (31.0-36.0); MEAN CORPUSCULAR VOLUME 100 fL (80-96); MONOCYTES # (AUTO) 1.4 /CMM (0.1-1.30); MONOCYTES % (AUTO) 9.1 % (2.0-12.0); NEUTROPHILS # (AUTO) 12.2 /CMM (1.8-8.9); PLATELET COUNT (AUTO) 138 /CMM (150-450); RED BLOOD CELL COUNT(AUTO) 4.36 MIL/uL (4.5-6.0)
[2019-12-20 07:03] LABS: ALBUMIN 2.2 g/dL (3.4-5.0); BILIRUBIN,TOTAL 1.2 mg/dL (0.2-1.0); CALCIUM, SERUM 8.4 mg/dL (8.5-10.1); POTASSIUM 3.4 mmol/L (3.5-5.1); TOTAL PROTEIN, SERUM 6.5 g/dL (6.4-8.2)
--- NOTE | 2019-12-20 08:00 | NUR ---
MS RN NOTES PATIENT IN BED SLEEPING. NO SOB OR ACUTE DISTRESS NOTED. SAFETY MEASURES IN PLACE WILL CONTINUE MONITOR.
[2019-12-20] MEDS: PANTOPRAZOLE 40 MG VIAL IV SCH (08:13)
[2019-12-20] MEDS: DOCUSATE SODIUM 100 MG CAPSULE PO SCH (08:13)
[2019-12-20] MEDS: FOLIC ACID 1 MG TABLET PO SCH (08:13)
[2019-12-20] MEDS: THIAMINE HCL 100 MG TABLET PO SCH (08:13)
[2019-12-20] MEDS ORDERED: POTASSIUM CHLORIDE 20 MEQ TAB.PRT.SR PO ONE (10:30)
[2019-12-20] MEDS: CIPROFLOXACIN IV RTU 400 MG in PREMIX 1 EA IV SCH ×2 (11:23→23:09)
--- NOTE | 2019-12-20 16:55 | NUR ---
MS ARTHUR NOTES PER EQUIPMENT HIRE MANAGER HOME HEALTH SET UP WITH [facility], PATIENTS PREVIOUS HOME HEALTH. Addendum: 12/20/19 at 1659 by VERONICA ROY RN ERROR WRONG PATIENT.
[2019-12-20] MEDS: IV NS 0.9% 1,000 ML IV PRN (18:32)
--- NOTE | 2019-12-20 19:16 | NUR ---
MS RN NOTES PATIENT IN BED RESTING NO SOB OR ACUTE DISTRESS NOTED. ALL DUE MEDICATIONS ADMINISTERED. ALL NEEDS MET. NO ACUTE CHANGES NOTED DURING AM SHIFT. PAIN WAS CONTROLLED WITH MEDICATIONS. ENDORSED CARE TO PM SHIFT.
--- NOTE | 2019-12-20 19:28 | NUR ---
MS RN: RECEIVED PATIENT Patient in bed, awake. Abdomen rounded and firm, denies N/V. IVF infusing. Had Morphine at 1853 per JERSON Juarez. Discussed pain scale/pain medication [place] and Morphine indication and possible side effect, patient verbalized understanding. Toleration room air, no c/o shortness of breath.
[2019-12-20 20:00] VITALS: BP 123/78
--- NOTE | 2019-12-20 20:05 | NUR ---
ABDOMINAL PAIN Patient in bed, c/o abdominal pain 10/31 denies N/V, given PRN [place], will reassess.
[2019-12-20 20:20] VITALS: BP 123/78
--- NOTE | 2019-12-20 22:25 | NUR ---
ABDOMINAL PAIN Patient in bed, c/o abdominal pain 12/01 denies N/V, given PRN Morphine, will reassess. Fall precaution maintained
[2019-12-21] MEDS: HYDROCODONE/APAP 5/325MG TABLET PO PRN ×6 (00:05→20:36)
--- NOTE | 2019-12-21 00:06 | NUR ---
ABDOMINAL PAIN Patient in bed, c/o abdominal pain 10/31 denies N/V, given PRN [place], will reassess.
[2019-12-21] MEDS: MORPHINE SULFATE INJ 2 MG/ML DISP.SYRIN IV PRN ×5 (02:35→23:04)
--- NOTE | 2019-12-21 02:35 | NUR ---
ABDOMINAL PAIN Patient in bed, c/o abdominal pain 12/01 denies N/V, given PRN Morphine, will reassess. Fall precaution maintained
--- NOTE | 2019-12-21 04:05 | NUR ---
ABDOMINAL PAIN Patient in bed, c/o abdominal pain 10/31 denies N/V, given PRN [place], will reassess.
[2019-12-21] MEDS: METRONIDAZOLE 500MG/ NS 100ML 500 MG in PREMIX 1 EA IV SCH ×3 (04:58→20:27)
--- NOTE | 2019-12-21 06:26 | NUR ---
MS RN: END OF SHIFT REPORT Patient in bed, awake. A/O x4. IVF maintained, IV antibiotic as scheduled, afebrile overnight. Abdominal pain managed with PRN [place] and Morphine, denies N/V. Fall precaution maintained. Will endorse to oncoming RN.
--- NOTE | 2019-12-21 07:03 | NUR ---
ABDOMINAL PAIN Patient in bed, c/o abdominal pain 12/01 denies N/V, given PRN Morphine, will reassess. Fall precaution maintained
[2019-12-21 07:38] LABS: CALCIUM, SERUM 8.8 mg/dL (8.5-10.1); POTASSIUM 3.5 mmol/L (3.5-5.1)
[2019-12-21 08:00] VITALS: BP 125/77
--- NOTE | 2019-12-21 08:00 | NUR ---
MS AM NOTES Received Patient lying in bed. No SOB. c/o moderate abd pain. Will administer pain meds for pain management as ordered. IV access intact and patent with IVF NS running at 90 ml/hr infusing well. Safety precautions in place. Bed in low/locked position, siderails upx2, call light within reach. will cont to monitor accordingly.
[2019-12-21] MEDS: PANTOPRAZOLE 40 MG VIAL IV SCH (08:30)
[2019-12-21] MEDS: FOLIC ACID 1 MG TABLET PO SCH (08:30)
[2019-12-21] MEDS: THIAMINE HCL 100 MG TABLET PO SCH (08:30)
[2019-12-21] MEDS: DOCUSATE SODIUM 100 MG CAPSULE PO SCH (08:30)
[2019-12-21] MEDS ORDERED: IOHEXOL-300 100 ML VIAL IV ONE (10:50)
[2019-12-21] MEDS ORDERED: IV NS 0.9% 250 ML IV ONE (10:50)
[2019-12-21] MEDS: CIPROFLOXACIN IV RTU 400 MG in PREMIX 1 EA IV SCH (12:44)
[2019-12-21] MEDS: IV NS 0.9% 1,000 ML IV PRN (13:01)
[2019-12-21 16:08] VITALS: BP 127/80
--- NOTE | 2019-12-21 19:12 | NUR ---
MS RN closing notes Patient in bed, awake. A/O x4. IVF maintained, Abdominal pain managed with PRN [place] and Morphine, denies N/V. Fall precaution maintained. Will endorse to oncoming RN.
--- NOTE | 2019-12-21 19:53 | NUR ---
MS RN NOTES PATIENT IN BED, AWAKE, ALERT AND ORIENTED X 4. BREATHING EVEN AND UNLABORED ON ROOM AIR. SHOWS NO SIGNS OF ACUTE RESPIRATORY DISTRESS. NO ACUTE PAIN. IV ON R HAND 22G RUNNING NS AT 90ML/HR. SHOWS NO SIGNS OF INFILTRATION, NO REDNESS. SAFETY PRECAUTIONS IN PLACE. BED IN LOWEST POSITION, LOCKED, AND CALL LIGHT KEPT WITHIN REACH. WILL CONTINUE TO MONITOR.
[2019-12-21 20:00] VITALS: BP 134/90
--- NOTE | 2019-12-21 20:36 | NUR ---
MS RN NOTES PATIENT COMPLAINING OF PAIN IN ABD. GIVEN PRN NORCO AT 2035. WILL CONTINUE TO MONITOR.
--- NOTE | 2019-12-21 23:04 | NUR ---
MS RN NOTES PATIENT COMPLAINING OF CONSTANT PAIN, ONLY GETTING AN HOUR OF RELIEF TAKING NORCO. GIVEN PRN MORPHINE AT 2304. VITAL SIGNS WNL. WILL CONTINUE TO MONITOR.
[2019-12-22] MEDS: CIPROFLOXACIN IV RTU 400 MG in PREMIX 1 EA IV SCH ×2 (00:11→11:16)
[2019-12-22] MEDS: ZOLPIDEM TARTRATE 5 MG TABLET PO PRN ×2 (00:12→01:22)
[2019-12-22] MEDS: HYDROCODONE/APAP 5/325MG TABLET PO PRN ×4 (00:41→14:26)
[2019-12-22] MEDS: MORPHINE SULFATE INJ 2 MG/ML DISP.SYRIN IV PRN ×2 (03:37→08:28)
[2019-12-22] MEDS: METRONIDAZOLE 500MG/ NS 100ML 500 MG in PREMIX 1 EA IV SCH ×2 (04:02→12:21)
[2019-12-22] MEDS: IV NS 0.9% 1,000 ML IV PRN (04:03)
--- NOTE | 2019-12-22 06:54 | NUR ---
MS RN NOTES PATIENT IN BED, ASLEEP, ALERT AND ORIENTED X 4. BREATHING EVEN AND UNLABORED ON ROOM AIR. SHOWS NO SIGNS OF ACUTE RESPIRATORY DISTRESS. NO ACUTE PAIN. IV ON R HAND 22G RUNNING NS AT 90ML/HR. SHOWS NO SIGNS OF INFILTRATION, NO REDNESS. ALL DUE MEDICATIONS GIVEN. SAFETY PRECAUTIONS IN PLACE. BED IN LOWEST POSITION, LOCKED, AND CALL LIGHT KEPT WITHIN REACH. WILL ENDORSE TO ONCOMING NURSE.
[2019-12-22] MEDS ORDERED: PANTOPRAZOLE 40 MG TABLET.DR PO SCH (07:30)
[2019-12-22 08:00] VITALS: BP 122/83
[2019-12-22] MEDS: DOCUSATE SODIUM 100 MG CAPSULE PO SCH (08:27)
[2019-12-22] MEDS: THIAMINE HCL 100 MG TABLET PO SCH (08:27)
[2019-12-22] MEDS: FOLIC ACID 1 MG TABLET PO SCH (08:28)
--- NOTE | 2019-12-22 08:38 | NUR ---
M/S RN OPENING NOTES RECEIVED PT ON BED, A/OX4, RESPONSIVE TO ALL STIMULI. NO PRESENCE OF ACUTE RESPIRATORY DISTRESS. ABD SOFT AND NON DISTENDED WITH ACTIVE BOWEL SOUNDS. SKIN WARM TO TOUCH AND DRY, INTACT, NO EDEMA NOTED. C/O PAIN 7/10, MORPHINE ADMINISTERED ORDERED, PAIN LOCATION AT LEFT RIB AREA PER PATIENT. IV SITE AT RIGHT HAND PATENT IN FLUSHING, RUNNING NS AT 90 ML/HR, NO S/SX OF INFILTRATION. BED IN LOW LOCKED POSITION, SRX2 UP FOR SAFETY, CALL LIGHT WITHIN REACH, WILL CONTINUE TO MONITOR CARE
--- NOTE | 2019-12-22 12:05 | NUR ---
M/S RN NOTES PT SEEN AND EVALUATED BY MS. JOSIAS VIRAMONTES NP. ORDERED LAB - [facility]. NO NEW ORDER FROM DR. JONES PER HOSPITALIST. WILL CONTINUE TO MONITOR CARE
[2019-12-22 13:05] LABS: BASOPHILS # (AUTO) 0.1 /CMM (0.0-0.2); BASOPHILS % (AUTO) 0.5 % (0.0-2.0); EOSINOPHILS % (AUTO) 1.8 % (0.0-6.0); HEMATOCRIT 44 % (39-51); HEMOGLOBIN 14.6 g/dL (13.5-17.5); LYMPHOCYTES # (AUTO) 1.3 /CMM (0.8-4.8); LYMPHOCYTES % (AUTO) 10.8 % (20.0-44.0); MEAN CORPUSCULAR HGB CONC 33 g/dl (31.0-36.0); MEAN CORPUSCULAR VOLUME 100 fL (80-96); MONOCYTES # (AUTO) 1.4 /CMM (0.1-1.30); MONOCYTES % (AUTO) 11.9 % (2.0-12.0); PLATELET COUNT (AUTO) 234 /CMM (150-450); RED BLOOD CELL COUNT(AUTO) 4.43 MIL/uL (4.5-6.0); WHITE BLOOD COUNT (AUTO) 12.1 K/uL (4.3-11.0)
[2019-12-22] MEDS ORDERED: THIA100V2 PO (14:10)
[2019-12-22] MEDS ORDERED: METR500T PO (14:10)
[2019-12-22] MEDS ORDERED: CIPR-262 PO (14:10)
[2019-12-22] MEDS ORDERED: OMEP20CA15 PO (14:10)
--- NOTE | 2019-12-22 16:35 | NUR ---
M/S SUPERVISOR WET POUR NOTES PT DISCHARGED TO HOME ORDERED, EXIT CARE INSTRUCTION PROVIDED TO PATIENT, PRESCRIPTION ORDERED GIVEN TO PATIENT, TO BE PICKED UP TODAY. PT A/OX4, NO PRESENCE OF ACUTE RESPIRATORY DISTRESS. ABD SOFT AND NON DISTENDED WITH ACTIVE BOWEL SOUNDS, LBM TODAY. SKIN WARM TO TOUCH AND DRY, INTACT WITH NO OPEN SKIN BREAKDOWN. PT C/O OF PAIN ON ABDOMEN BUT TOLERABLE, NORCO ADMINISTERED AT 1426 EFFECTIVE. IV SITE AND ID BAND REMOVED PER HOSPITAL PROTOCOL. PT LEFT IN SAFE AND MEDICALLY STABLE CONDITION, PICKED UP BY MOTHER A[place]A VIA PRIVATE CARE.
== END 2019-12-22 16:36 | disposition home or self-care (01) | DRG 282 ==
LOC: ER 10:41 → MED 13:59 → MEDSG2 12-19 16:15 → MED 12-21 21:44
PROVIDERS: ADMIT Nurse Practitioner Acute Care; ATTEND Nurse Practitioner Acute Care
DX: K85.80 Other acute pancreatitis without necrosis or infection (principal); F10.10 Alcohol abuse, uncomplicated; R74.0 Nonspecific elevation of levels of transaminase and lactic acid dehydrogenase [LDH]; I82.890 Acute embolism and thrombosis of other specified veins; K76.0 Fatty (change of) liver, not elsewhere classified; E80.6 Other disorders of bilirubin metabolism; D72.829 Elevated white blood cell count, unspecified; K59.00 Constipation, unspecified; R16.0 Hepatomegaly, not elsewhere classified
CPT/HCPCS: 36415; 74018; 74160-TC; 76705-TC; 80048-TC; 80053-TC; 80061-TC; 80076-TC; 82150-TC; 83605-TC; 83690-TC; 83735-TC; 84100-TC; 85025-TC; 87081-TC; A4216; C9113; C9803-CS; G0378; J0744; J1170; J1885; J2060; J2270; J2405; J3411; J3490; J7030; J7050; J7060; Q9967